=== PATIENT | male | born 1995 | race Caucasian/White ===

== ENCOUNTER 2018-07-19 10:21 | Emergency (ER) | payer OTHER ==
--- NOTE | 2018-07-19 11:02 | ED ---
HPI Chest Pain - HPI Summary HPI Summary: Pt is a 22 y/o M presenting to the ED with a chief complaint of chest pain. He states he was here the other day for the same chest pain, described as tightness , and they did an EKG and sent him home. He visited his PCP yesterday and they did not do much. The pain has moved from the L anterior to mid-sternal to upper sternal, closer to his throat, and is intermittent. He states moving helps it go away and sometimes deep breaths make it worse. He also notes his L elbow was throbbing this morning. He states the only thing he can think of that could have caused this is that he uses a dab pen and he may have coughed a bit too hard when he used it a couple of days ago. His sx are currently not present. He does also report recent stress and chronic anxiety. - History of Current Complaint Chief Complaint: EDChestPainROMI Time Seen by Provider: 07/19/18 10:38 Hx Obtained From: Patient Onset/Duration: Started Days Ago, Still Present Timing: Intermittent, Lasting Minutes Initial Severity: Mild Current Severity: None Pain Intensity: 0 Pain Scale Used: 0-10 Numeric Chest Pain Location: Mid Sternal, Upper Sternal, Left Anterior Chest Pain Radiates: No Character: Tightness, Other: - "twinges" Aggravating Factor(s): Deep Breaths Alleviating Factor(s): Other: - movement Associated Signs and Symptoms: Positive: Chest Pain, Anxiety, Recent Stress, Other: - L elbow throbbing - Allergy/Home Medications Allergies/Adverse Reactions: Allergies Allergy/AdvReac Type Severity Reaction Status Date / Time No Known Allergies Allergy Verified 07/19/18 10:27 Home Medications: Home Medications Omeprazole CAP (NF) [Prilosec CAP* 20 MG] 20 mg PO DAILY 07/19/18 [History Confirmed 07/19/18] PMH/Surg Hx/FS Hx/Imm Hx Previously Healthy: Yes Endocrine/Hematology History: Denies: Hx Diabetes Cardiovascular History: Denies: Hx Hypertension Infectious Disease History: No Infectious Disease History: Denies: Traveled Outside the [place] in Last 30 Days - Family History Known Family History: Negative: Cardiac Disease - Social History Alcohol Use: Occasionally Hx Substance Use: Yes Substance Use Type: Reports: Marijuana Substance Use Comment - Amount & Last Used: daily Hx Tobacco Use: No Smoking Status (MU): Never Smoked Tobacco Review of Systems Positive: Chest Pain Positive: Arthralgia - L elbow Positive: Anxious All Other Systems Reviewed And Are Negative: Yes Physical Exam - Summary Physical Exam Summary: Appearance: Well-appearing, Well-nourished, lying in bed comfortably Skin: Warm, dry, no obvious rash Eyes: sclera anicteric, no conjunctival pallor ENT: mucous membranes moist, pharynx appears normal Neck: Supple, nontender Respiratory: Clear to auscultation, no signs of respiratory distress Cardiovascular: Normal S1, S2. No murmurs. Normal distal pulses in tibial and radial bilaterally. Abdomen: Soft, nontender, normal active bowel sounds present Musculoskeletal: Normal, Strength/ROM Intact Neurological: A&Ox3, awake and alert, mentation is normal, speech is fluent and appropriate Psychiatric: affect is normal, does not appear anxious or depressed Triage Information Reviewed: Yes Vital Signs On Initial Exam: Initial Vitals Temp Pulse Resp BP Pulse Ox 97.8 F 88 16 143/87 98 07/19/18 10:24 07/19/18 10:24 07/19/18 10:24 07/19/18 10:24 07/19/18 10:24 Vital Signs Reviewed: Yes Diagnostics - Vital Signs Vital Signs Temp Pulse Resp BP Pulse Ox 07/19/18 10:24 97.8 F 88 16 143/87 98 - Laboratory Result Diagrams: 07/19/18 11:19 07/19/18 11:19 Lab Statement: Any lab studies that have been ordered have been reviewed, and results considered in the medical decision making process. - Radiology CXR Radiology Interpretation Completed By: Radiologist Summary of Radiographic Findings: No active cardiopulmonary disease is noted. ED physician has reviewed this report. - EKG 1032 Cardiac Rate: NL - 82bpm EKG Rhythm: Sinus Rhythm ST Segment: Normal Ectopy: None Summary of EKG Findings: EKG at 1032 shows NSR at 82 BPM, P waves, QRS complex, and T waves are within normal limits, T waves and intervals are normal, no ischemic changes. This is a normal EKG. Chest Pain Course/Dx - Course Course Of Treatment: Pt is a 22 y/o M presenting to the ED with a chief complaint of chest pain that is intermittent and brief, described as "twinges." He notes recent stress, chronic anxiety, as well as his L elbow throbbing this morning. The chest pain began as L anterior, moved to mid-sternal, then upper sternal. He thinks it might have been caused by coughing too hard a couple of days ago. The pt's physical exam is normal. EKG at 1032 shows NSR at 82 BPM, P waves, QRS complex, and T waves are within normal limits, T waves and intervals are normal, no ischemic changes. This is a normal EKG. CXR shows no active cardiopulmonary disease. Pt is PERC negative. Pt will be d/c'ed home with a dx of chest wall pain. He is stable and agreeable with this plan. - Diagnoses Provider Diagnoses: Chest wall pain Discharge - Sign-Out/Discharge Documenting (check all that apply): Patient Departure Patient Received Moderate/Deep Sedation with Procedure: No - Discharge Plan Condition: Good Disposition: HOME Patient Education Materials: Chest Wall Pain (ED) Referrals: No Primary Care Phys,NOPCP [Primary Care Provider] - Additional Instructions: The tests we ran did not give us any indication that your chest symptoms are anything dangerous. In particular there is no sign of any problem with the heart or lungs. The most likely culprit is musculoskeletal pain from the rib cage, which can wax and wane over a period of a few weeks after seemingly innocuous injury. - Billing Disposition and Condition Condition: GOOD Disposition: Home - Attestation Statements Document Initiated by Janna: Yes Documenting Scribe: Soha Mcfadden Provider For Whom Janna is Documenting (Include Credential): Joselito Samaniego MD. Scribe Attestation: Soha Ernst, rolyed for Joselito Samaniego MD. on 07/20/18 at 0948. Scribe Documentation Reviewed: Yes Provider Attestation: The documentation as recorded by the Soha reyes accurately reflects the service I personally performed and the decisions made by me, Joselito Samanigeo MD. Status of Scribe Document: Viewed
[2018-07-19 11:48] LABS: Albumin 5.2 g/dL (3.2-5.2); Albumin/Globulin Ratio 1.4 (1-3); BUN/Creatinine Ratio 17.8 (8-20); Calcium 10.6 mg/dL (8.6-10.3); EGFR African American 109.8 (>60); EGFR Non-African American 90.8 (>60); Globulin 3.8 g/dL (2-4); Potassium 4.5 mmol/L (3.5-5.0); Total Bilirubin 0.7 mg/dL (0.2-1.0)
[2018-07-19 12:47] LABS: ABS Eosinophils 0.1 10^3/ul (0-0.6); ABS Lymphocytes 1.9 10^3/ul (1.0-4.8); ABS Monocytes 0.7 10^3/ul (0-0.8); ABS Neutrophils 7.4 10^3/ul (1.5-7.7); Hematocrit 48 % (42-52); Hemoglobin 16.3 g/dL (14.0-18.0); Lymphocyte % 18.8 %; Mean Corpuscular HGB Conc 34 g/dL (31-36); Mean Corpuscular Hemoglobin 29 pg (27-31); Mean Corpuscular Volume 85 fL (80-94); Mean Platelet Volume 8.2 fL (7.4-10.4); Platelet Count 292 10^3/uL (150-450); Red Cell Distribution Width 13 % (10-15); White Blood Count 10.1 10^3/uL (3.5-10.8)
[2018-07-19 13:55] VITALS: BP 126/92
== END 2018-07-19 13:55 | disposition home or self-care (01) ==
LOC: ED 10:21
DX: R07.89 Other chest pain (principal)
CPT/HCPCS: 36415; 71046; 80053; 84484; 85025; 93005; 99283